=== PATIENT | male | born 1985 | race Two or more races ===

== ENCOUNTER 2018-10-31 14:16 | Emergency (ER) | payer OTHER ==
[~2018-10-31] VITALS: Ht 185.4 cm; Wt 95.2 kg
[~2018-10-31 14:16] MED LIST: CEPH500 PO; CLIN300 PO; CRUTCH2 USE; CRUTCH3 USE; Ciprodex Otic7.5 ML RIGHTEAR; HYDACE5 PO; IBUP800 PO; NAPR500 PO; OXYACE5T PO; RXHYDACE PO; SULTRIDS PO
== END 2018-10-31 17:22 | disposition home or self-care (01) ==
LOC: ER 14:16
DX: S66.922A Laceration of unspecified muscle, fascia and tendon at wrist and hand level, left hand, initial encounter (principal); W22.8XXA Striking against or struck by other objects, initial encounter; Z88.5 Allergy status to narcotic agent; Z88.8 Allergy status to other drugs, medicaments and biological substances; Z88.0 Allergy status to penicillin
CPT/HCPCS: 12002; 73100; 99283-25

== ENCOUNTER 2019-03-30 05:18 | Emergency (ER) | payer OTHER | END 2019-03-30 06:31 | disposition left against medical advice (07) | LOC: ER 05:18 | DX: Z53.21 Procedure and treatment not carried out due to patient leaving prior to being seen by health care provider (principal) ==

== ENCOUNTER 2019-03-30 07:16 | Emergency (ER) | payer OTHER ==
[~2019-03-30] VITALS: Ht 185.4 cm; Wt 95.2 kg
== END 2019-03-30 07:55 | disposition left against medical advice (07) ==
LOC: ER 07:16
DX: J02.9 Acute pharyngitis, unspecified (principal); F41.9 Anxiety disorder, unspecified; Z88.0 Allergy status to penicillin; Z88.8 Allergy status to other drugs, medicaments and biological substances
CPT/HCPCS: 99282